=== PATIENT | male | born 1995 | race Two or more races ===

== ENCOUNTER 2023-02-11 22:43 | Emergency (ER) | payer OTHER ==
[~2023-02-11] VITALS: Ht 165.1 cm; Wt 65.8 kg
[2023-02-11 23:02] VITALS: BP 122/81
--- NOTE | 2023-02-11 23:02 | NUR ---
[employer] FOR OTB C/O R HAND LAC. -BLOODTHINNERS. UNKNOWN TDAP. PT A/OX4. TOLERATING R/A WELL WITH NO RESP DISTRESS. SAFETY MEASURES IN PLACE.
[2023-02-11] MEDS ORDERED: LIDOCAINE HCL/PF 1% 30 ML SDV ONE (23:05)
--- NOTE | 2023-02-11 23:13 | NUR ---
[employer] AT PT'S BEDSIDE FOR SUTURES TO R HAND
[2023-02-11] MEDS ORDERED: TDAP [DIPH/PERTUSSIS/TET] 0.5 ML VIAL IM ONE ×2 (23:17→23:30)
--- NOTE | 2023-02-11 23:29 | NUR ---
D/C'D TO [employer] IN CUSTODY
[2023-02-11] MEDS ORDERED: LIDOCAINE HCL/PF 1% 30 ML VIAL TP ONE (23:30)
== END 2023-02-11 23:29 ==
LOC: ER 22:53
DX: S61.411A Laceration without foreign body of right hand, initial encounter (principal); Z60.2 Problems related to living alone; Y04.0XXA Assault by unarmed brawl or fight, initial encounter; Y93.89 Activity, other specified; Y92.89 Other specified places as the place of occurrence of the external cause; Y99.8 Other external cause status
CPT/HCPCS: 99283; 12001; 90471; 90715; J3490 ×2